=== PATIENT | male | born 1995 | race Caucasian/White ===

== ENCOUNTER 2017-06-28 22:59 | Inpatient (IN) | payer OTHER ==
[2017-06-28 23:47] LABS: Hematocrit 44 % (42-52); Hemoglobin 15.4 g/dl (14.0-18.0); Mean Corpuscular HGB Conc 35 g/dl (31-36); Mean Corpuscular Hemoglobin 32 pg (27-31); Mean Corpuscular Volume 91 fL (80-94); Mean Platelet Volume 8 um3 (7.4-10.4); Red Blood Count 4.86 10^6/ul (4.0-5.4); Red Cell Distribution Width 13 % (10.5-15); White Blood Count 8.4 10^3/ul (3.5-10.8)
[2017-06-28 23:54] LABS: Urine Bilirubin Negative (Negative); Urine Glucose Negative (Negative); Urine Nitrite Negative (Negative)
[2017-06-29 00:06] LABS: Benzodiazepine Urine Screen None Detected (None Detect)
[2017-06-29 00:06] LABS: Acetaminophen < 15 mcg/mL; Alcohol < 10 mg/dL (<10); Salicylate < 2.50 mg/dL (<30)
[2017-06-29 00:07] LABS: ALT 19 U/L (7-52); AST 18 U/L (13-39); Albumin 4.4 g/dL (3.2-5.2); Alkaline Phosphatase 62 U/L (34-104); Anion Gap 7 mmol/L (2-11); BUN/Creatinine Ratio 14.6 (8-20); Blood Urea Nitrogen 18 mg/dL (6-24); CO2 Carbon Dioxide 28 mmol/L (22-32); Calcium 9.1 mg/dL (8.6-10.3); Chloride 103 mmol/L (101-111); EGFR African American 96.5 (>60); Globulin 2.6 g/dL (2-4); Glucose 126 mg/dL (70-100); Potassium 3.4 mmol/L (3.5-5.0); Sodium 138 mmol/L (133-145)
[2017-06-29] MEDS ORDERED: Potassium Chlor TAB* 20 MEQ TAB.ER PO ONE (00:25)
--- NOTE | 2017-06-29 01:38 | ED ---
Cindy Reeder Rebecca, scribed for Doyle Rosas on 06/28/17 at 2349 . Psychiatric Complaint - HPI Summary HPI Summary: Pt is a 21 y/o M BIBA as a 941 who presents to ED c/o anxiety, depression and SIs. Pt had left his mother a suicide note and he was found on a bridge, planning to jump, per nurse's triage. Anxiety is currently moderate, ranked 6-7/ 10. Sx aggravated by recent stress with the pt stating "it's a lot." Denies any drug or alcohol use. No diagnosis of prior psychiatric problems. - History Of Current Complaint Chief Complaint: EDMentalHealth Time Seen by Provider: 06/28/17 23:11 Hx Obtained From: Patient Onset/Duration: Still Present Severity Currently: Moderate Character: Depressed, Anxious Aggravating Factor(s): Recent Stress Alleviating Factor(s): Nothing Has Suicidal: Reports: Thoughts - Allergies/Home Medications Home Medications: Home Medications DOXYcycline CAP(*) [DOXYcycline 100MG CAP(*)] 100 mg PO DAILY 06/29/17 [History Confirmed 06/29/17] PMH/Surg Hx/FS Hx/Imm Hx Endocrine/Hematology History: Denies: Hx Diabetes Cardiovascular History: Denies: Hx Hypertension - Immunization History Date of Tetanus Vaccine: UTD Infectious Disease History: No Infectious Disease History: Denies: Traveled Outside the [place] in Last 30 Days - Family History Known Family History: Negative: Cardiac Disease, Hypertension, Diabetes - Social History Alcohol Use: Occasionally Substance Use Type: Reports: None Smoking Status (MU): Never Smoked Tobacco Review of Systems Negative: Fever Positive: Anxious, Depressed, Other - SIs All Other Systems Reviewed And Are Negative: Yes Physical Exam - Summary Physical Exam Summary: Appearance: Well appearing, no pain distress Skin: warm, dry, reflects adequate perfusion Head/face: normal Eyes: EOMI, TULIO ENT: normal Neck: supple, nontender Respiratory: CTA, breath sounds present Cardiovascular: RRR, pulses symmetrical Abdomen: nontender, soft Bowel: present Musculoskeletal: normal, strength/ROM intact Neuro: normal, sensory motor intact, A&Ox3 Psychiatric: Depressed affect Triage Information Reviewed: Yes Vital Signs On Initial Exam: Initial Vitals Temp Pulse Resp BP Pulse Ox 99.4 F 66 18 149/67 99 06/28/17 23:37 06/28/17 23:37 06/28/17 23:37 06/28/17 23:37 06/28/17 23:37 Vital Signs Reviewed: Yes - Branden Coma Scale Coma Scale Total: 15 Diagnostics - Vital Signs Vital Signs Temp Pulse Resp BP Pulse Ox 06/28/17 23:37 99.4 F 66 18 149/67 99 - Laboratory Result Diagrams: 06/28/17 23:37 06/28/17 23:37 Lab Statement: Any lab studies that have been ordered have been reviewed, and results considered in the medical decision making process. Course/Dx - Course Assessment/Plan: Pt is a 21 y/o M BIBA as a 941 who presents to ED c/o anxiety, depression and SIs. Pt had left his mother a suicide note and he was found on a bridge, planning to jump, per nurse's triage. Anxiety is currently moderate, ranked 6-7/10. Sx aggravated by recent stress with the pt stating "it's a lot." Denies any drug or alcohol use. No diagnosis of prior psychiatric problems. Medically cleared for MHE at 0021. Upon completion of MHE and consultation with Dr. Guerra it hasbbeen determined that the pt will be admitted with Dx of depression and SIs as an involuntary admission. Elevated BP noted. - Differential Dx/Clinical Impression Provider Diagnosis: Depression, Suicidal ideations, Creatinine elevation Discharge - Discharge Plan Condition: Stable Disposition: ADMITTED TO [facility] The documentation as recorded by the Cindy bee Rebecca accurately reflects the service I personally performed and the decisions made by , Doyle Rosas.
[2017-06-29] MEDS ORDERED: Acetaminophen TAB* 325 MG PO PRN (05:06)
[2017-06-29] MEDS ORDERED: Al Hydrox/Mg Hydrox/Simet LIQ* 30 ML UDC PO PRN (05:06)
[2017-06-29] MEDS: DOXYcycline CAP(*) 100 MG PO SCH (09:21)
[2017-06-29] MEDS: Vitamin THERAPEUTIC TAB PO SCH (09:21)
--- NOTE | 2017-06-30 02:06 | HP ---
HISTORY AND PHYSICAL: DATE OF ADMISSION: 06/29/17 IDENTIFYING DATA: Zach is a 21-year-old single, [place] male, a yovanny student at [employer], living in campus housing, who was brought in by [place] [employer] and ambulance and he was admitted on emergency status. CHIEF COMPLAINT: "I have had a rough couple of weeks in terms of classes." HISTORY OF PRESENT ILLNESS: The patient relates that he is majoring in industrial labor relations. He is unhappy with his major and struggling academically. He believes that "he bummed" a couple of quizzes last Saturday. He felt distressed and on he started having thoughts of suicide with a plan to jump off a bridge at [place]. On Saturday, he decided to go ahead with the plan, was walking towards the bridge, when his mother happened to call from [place] and he "confessed" to his mother what he was about to do. His mother begged him not to and immediately called emergency services at [place] who found him near the bridge, crying, and drove him to the emergency room of this hospital for mental health evaluation. He was admitted on emergency status. The patient relates having a history of recurrent depressive episodes. He reports feeling sad about 3 or 4 times a week, with low mood, isolating from others, lack of energy, sleeping 4 to 5 hours a night, daytime tiredness, and feelings of guilt, high anxiety in social situation and around unfamiliar people and in situation of performance. He describes additional stressors of feeling homesick, still feeling hurt from breakup of relationship with a boyfriend, not having come out to his parent's as pedraza, and worries that he is not going to have a good career to pay his parents back for his education. REVIEW OF PSYCHIATRIC SYMPTOMS: The patient denies symptoms of bc or psychosis. He denies obsessive thoughts, compulsive rituals, history of trauma or abuse or PTSD symptoms. He denies previous diagnosis of ADHD or learning disorder. He denies symptoms of eating disorder. PAST PSYCHIATRIC HISTORY: This is his first inpatient psychiatric admission. The patient, last July 2016, had thoughts of suicide by cutting his wrist. He did not act on the thoughts and instead he started going to [facility] for therapy. He saw a therapist Janna Bell for about 2 months. He met with a psychiatrist there who diagnosed him with social anxiety and gave him a prescription for an unspecified medication that he never filled. SUICIDE/HOMICIDE HISTORY: He denies previous abilio suicide attempt, does report history of ideation in stessfull situations. He denies any self- injurious behavior. He denies any history of violence. TRAUMA/ABUSE HISTORY: Denies. PAST MEDICAL HISTORY: Remarkable for facial acne, for which he is on doxycycline and Epiduo. He denies any other active medical problems, any history of head trauma with loss consciousness, seizures or surgeries. ALLERGIES: No known drug allergies. REVIEW OF MEDICAL SYMPTOMS: Negative. PHYSICAL EXAMINATION GENERAL: Well-appearing 21-year-old male, who does not appear to be in any acute physical distress. He is alert, oriented x3. VITAL SIGNS: Blood pressure 133/83, pulse is 85, respirations 16, and temperature 98.7. HEENT: Head is atraumatic, normocephalic, symmetrical. Eyes: PERRLA. Tympanic membrane intact. Sclerae anicteric. Conjunctivae clear. NECK: Trachea midline, freely mobile, no cervical lymphadenopathy. No nuchal rigidity. LUNGS: Clear to auscultation bilaterally. HEART: Regular rate and rhythm. S1 and S2. No murmur, gallops or rubs. BREAST: No mass or discharge. ABDOMEN: Soft, nontender. No masses, organomegaly or rebound tenderness. No scars noted. Active bowel sounds in all 4 quadrants. EXTREMITIES: No pain or limitation in the range of movement. Pulses are equal and adequate in all 4 extremities. NEUROLOGIC: Cranial nerve II through XII are intact. Cerebellar function intact. Muscle strength grade 5/5 in all 4 extremities. STRUCTURAL EXAM: The patient examined in both supine and upright positions. No gross AP or lateral asymmetry. Gait and movement are within normal limits. SKIN: Skin texture, turgor, and pigmentation are within normal limits. LABORATORY DATA: On admission, his CBC shows MCH of 32. Complete metabolic panel shows potassium of 3.4, creatinine of 1.23, non-fasting glucose of 126. Urinalysis within normal limits and urine toxicology screen is negative for all the tested substances. FAMILY HISTORY: Positive family history of depression in maternal great-aunt and maternal great-grandfather who also had PTSD. SUBSTANCE ABUSE HISTORY: The patient reports having been sober for 6 weeks. Prior to that he used to have 3 or 4 beers every other weekend, rarely to the point of intoxication. He denies legal or medical consequences. He endorses occasional marijuana use. He denies the use of tobacco or other illicit drugs or misuse of prescription medications. PERSONAL AND SOCIAL HISTORY: He is the middle of 3 children from an intact family, with parents. He has an older sister who is an independent adult and a younger sister who is a senior in high school and lives at home with parents in [place], [place], where his father is a security police and his mother is a vice-principal at a school. The patient described a happy childhood in a supportive home environment. He feels close to his mother. He identified as being a homosexual. He ended a relationship with a boyfriend as the boyfriend wanted to have an open relationship. He reports having used safe sex practices and he declines HIV testing. 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 He feels guilt that his parents are spending a lot of money on his education. He has aspirations of working after graduation and eventually going to law school. MENTAL STATUS EXAMINATION: Finds an averagely-built [place] male, who looks his stated age. He is adequately groomed. He is dressed in hospital scrubs. He has visible lesions of facial acne. He presents as cooperative, no abnormal psychomotor activity is observed. Speech is spontaneous, normal rate, rhythm, and volume. His affect is constricted. Mood is depressed. Thoughts are linear and goal directed. No evidence of formal thought disorder and no overt delusions. He avidly denies active suicidal ideation, urges to self mutilate and contracts for safety. Insight and judgement are fair. Impulse control is good in this setting. He is alert. He is oriented to time, place, and person. Attention, memory, and concentration are all fair. Fund of knowledge is adequate. Intelligence is estimated to be in the normal average range. SUMMARY: First inpatient psychiatric admission for this 21-year-old male with history of outpatient counselling, but no previous medication trial, previous diagnosis of depression and social anxiety, who was referred by emergency services from [employer] after he was found near a bridge, crying. He told his mother on the phone that he had thoughts of jumping his . Precipitant was not doing well in school quizzes earlier last Saturday. Medical history is remarkable for facial acne. Positive family history of depression and PTSD in maternal relatives. He described academic stress, dissatisfaction with his major, still feeling hurt over the breakup of relationship, not having come out to his parents as pedraza, and guilt about money that his parents are spending on his education as his stressors. DIAGNOSTIC IMPRESSIONS: Major depressive disorder, recurrent, severe, without psychotic features. Social anxiety disorder. TREATMENT PLAN: Admit to mental health unit, 15-minute checks, full code status. Legal status is emergency. Initiate comprehensive milieu, individual and group, psychotherapeutic support. The patient was offered a trial of an antidepressant and antianxiety medication. He declined after hearing of the indications of risks, benefits, and alternatives. He expressed preference for therapy alone. Discharge planning will involve coordination of all of his aftercare with [facility], when he is psychiatrically stable and ready for discharge. [id number]/[facility] #: [id number] ANURADHA
[2017-06-30] MEDS: Vitamin THERAPEUTIC TAB PO SCH (08:44)
[2017-06-30] MEDS: DOXYcycline CAP(*) 100 MG PO SCH (09:07)
[2017-07-01 08:17] VITALS: BP 144/72
[2017-07-01] MEDS: Vitamin THERAPEUTIC TAB PO SCH (09:49)
[2017-07-01] MEDS: DOXYcycline CAP(*) 100 MG PO SCH (09:50)
--- NOTE | 2017-07-01 11:42 | DS ---
Subjective - Subjective Discharge Date: 07/01/17 Discharge Planning - Discharge Planning Medications: Current Medications Acetaminophen (Tylenol Tab*) 650 mg PO Q4H PRN PRN Reason: PAIN or TEMP > 101 F Al Hydrox/Mg Hydrox/Simethicone (Maalox Plus*) 30 ml PO Q4H PRN PRN Reason: INDIGESTION Doxycycline Hyclate (Vibramycin Cap(*)) 100 mg PO DAILY [facility] Last Admin: 07/01/17 09:50 Dose: Not Given Multivitamins (Theragran Tab*) 1 tab PO DAILY [facility] Last Admin: 07/01/17 09:49 Dose: Not Given Discharge Planning: Prescriptions provided for discharge [] Yes [] No Follow up care details as per social work arrangements. Patient response to discharge plan: [] eager for discharge [] agreeable with discharge plan [] ambivalent about discharge [] disagrees with discharge today
== END 2017-07-01 12:15 | disposition home or self-care (01) | DRG 885 ==
LOC: ED 22:59 → BSU 06-29 02:23
PROVIDERS: ADMIT Psychiatry & Neurology Psychiatry; ATTEND Psychiatry & Neurology Psychiatry
DX: F33.2 Major depressive disorder, recurrent severe without psychotic features (principal); R45.851 Suicidal ideations; F41.8 Other specified anxiety disorders; Z81.8 Family history of other mental and behavioral disorders
CPT/HCPCS: 36415; 80053; 80307; 80320; 80329; 81003; 84443; 85025; 99222; 99238; A9270-GY; G0480